=== PATIENT | female | born 1960 | race Caucasian/White ===

== ENCOUNTER → 2023-09-12 09:31 | Outpatient (REF) | payer BC, SELFPAY ==
[2023-09-12 16:32] LABS: Lyme Antibody Screen, EIA Negative (Negative)
== END ==
LOC: REG 09:31
PROVIDERS: ATTENDING PHYSICIAN Nurse Practitioner Adult Health
DX: A69.20 Lyme disease, unspecified (principal); W57.XXXA Bitten or stung by nonvenomous insect and other nonvenomous arthropods, initial encounter
CPT/HCPCS: 36415; 86618

== ENCOUNTER → 2024-01-20 14:08 | Outpatient (REF) | payer BC, SELFPAY | LOC: WDC 14:08 | PROVIDERS: ATTENDING PHYSICIAN Obstetrics & Gynecology Gynecology; FAMILY PHYSICIAN Family Medicine | DX: Z01.419 Encounter for gynecological examination (general) (routine) without abnormal findings (principal); Z12.31 Encounter for screening mammogram for malignant neoplasm of breast | CPT/HCPCS: 77063; 77067 ==

== ENCOUNTER → 2024-03-27 08:22 | Outpatient (REF) | payer MEDICARE, SELFPAY ==
[2024-03-27 09:12] LABS: % Basophils 1.2 % (0-2); % Eosinophils 3.4 % (0-6); % Immature Granulocytes 0.2 % (0-0.5); % Lymphocytes 36.1 % (20.5-51.1); % Monocytes 6.1 % (1.7-9.3); Absolute Basophils 0.1 10^3/uL (0-0.2); Absolute Eosinophils 0.1 10^3/uL (0-0.7); Absolute Lymphocytes 1.5 10^3/uL (1.2-3.4); Absolute Monocytes 0.3 10^3/uL (0.1-0.6); Absolute Neutrophils 2.2 10^3/uL (1.4-6.5); Hematocrit 41.4 % (37.0-47.0); Hemoglobin 13.5 g/dL (12.0-16.0); Mean Corp Hgb Conc. 32.6 g/dL (33.0-37.0); Mean Corpuscular Hgb 30.7 pg (27.0-31.0); Mean Corpuscular Volume 94.1 fL (81.0-99.0); Mean Platelet Volume 9.4 fL (7.4-10.4); Nucleated Red Blood Cells % 0 %; Platelet Count 210 10^3/uL (130-400); Red Cell Dist. Width 13.3 % (11.5-14.5); White Blood Cell Count 4.1 10^3/uL (4.8-10.8)
[2024-03-27 09:31] LABS: ALT (SGPT) 22 U/L (0-35); AST (SGOT) 23 U/L (14-36); Alkaline Phosphatase 57 U/L (38-126); Blood Urea Nitrogen 23 mg/dl (7-17); Calcium 9.3 mg/dl (8.4-10.2); Carbon Dioxide 29 mmol/L (22-30); Chloride 106 mmol/L (98-107); Glucose 92 mg/dl (70-99); HDL Cholesterol 102 mg/dl; LDL Cholesterol, Calculated 78 mg/dl; Potassium 4.2 mmol/L (3.5-5.1); Sodium 143 mmol/L (135-145); Total Bilirubin 0.8 mg/dl (0.2-1.3); Total Cholesterol 198 mg/dl (50-199); Total Protein 6.3 g/dl (6.3-8.2); Triglyceride 92 mg/dl (10-149); Very Low Density Lipoprotein 18 mg/dl (0-30); eGFR > 60.00
[2024-03-27 10:07] LABS: TSH Reflex To Free T4 1.19 uIU/ml (0.47-4.68)
== END ==
LOC: REG 08:22
PROVIDERS: ATTENDING PHYSICIAN Family Medicine
DX: Z00.00 Encounter for general adult medical examination without abnormal findings (principal); Z79.899 Other long term (current) drug therapy
CPT/HCPCS: 36415; 80053; 80061; 84443; 85025

== ENCOUNTER 2024-03-30 12:41 | Emergency (ER) | payer MEDICARE, SELFPAY ==
[2024-03-30 12:47] VITALS: BP 138/75
--- NOTE | 2024-03-30 15:20 | ED.GENMED ---
History of Present Illness
General
Chief Complaint: Musculo-Skeletal Complaint
Time Seen by Provider: 03/30/24 14:31
History of Present Illness
History of Present Illness:
64-year-old female without significant past medical history presenting to the emergency department for left wrist pain. Patient reports she was putting up [place] decorations and slipped, bracing her fall with her left hand outstretched. She
reports pain at the wrist and hand as well as her forearm. Denies head injury or loss of consciousness. She did not take any pain medications prior to arrival. Denies any additional acute injuries or complaints. Denies numbness or tingling to
her extremity. Denies additional acute medical complaints
Phy Exam
Physical Exam
Physical Exam:
General: Well-appearing, no clinical signs of dehydration, nontoxic and in no acute distress
HEENT: protecting airway
Neck: appears supple
CV: Normal heart rate
Resp: No accessory muscle use, no increased work of breathing,
Abd: no distension
Extremities: No deformities, no swelling, mild tenderness to palpation to the wrist joint and snuffbox. Range of motion intact. Distal sensation and pulses intact. No tenderness of the forearm or elbow. No erythema or warmth
Neuro: alert, no focal neurologic deficit
: deferred
Rectal: deferred
Psych: Normal affect
Skin: Intact
Course
Orders/Labs/Results
Orders:
Orders
03/30/24 13:19
Elbow, 3 view, Left [CR Elbow - Left Min 3 Views ] Urgent
Comment:
Reason For Exam: fall, pain
Forearm, Left 2 View [CR Forearm - Left 2 View] Urgent
Comment:
Reason For Exam: fall, pain
Wrist, Left 3 Views CR [CR Wrist - Left Min 3 Views] Urgent
Comment:
Reason For Exam: pain, fall
03/30/24 15:03
Ibuprofen [Motrin] 600 mg PO NOW STA
Vital Signs
Initial and Last Documented VS:
Initial Vital Signs
Resp
16
03/30/24 12:45
Last Documented Vital Signs
Temp Pulse Resp BP Pulse Ox
97.4 F 69 16 138/75 97
03/30/24 12:47 03/30/24 12:47 03/30/24 12:47 03/30/24 12:47 03/30/24 12:47
MDM/Problems Addressed
MDM/Problems Addressed:
64-year-old female presenting for left hand and wrist pain after a fall. Vital signs are normal.
On exam, patient is well-appearing, no acute distress or discomfort. Relatively benign examination of the left upper extremity without swelling or deformity, no neurovascular compromise, no infectious findings. Ultimately suspect wrist sprain.
X-rays obtained of the wrist, forearm, elbow, no fracture or malalignment. Will place in a splint given snuffbox tenderness. Patient advised to get a repeat x-ray 1 to 2 weeks if pain is worsening or persisting. Otherwise advised supportive
therapy including Tylenol and Motrin. Return precautions discussed and patient verbalized understanding.
*Critical Care Note
Total Time (30-74mins, 75-104mins- exclusive of procedures): Not Applicable
ED Attending Note
-
Portions of this chart may have been created with voice recognition software.� Occasional wrong word or��sound alike� substitutions may have occurred due to the inherent limitations of voice recognition software.
Discharge Plan
Departure
Prescriptions:
No Action
No Current Medications
0
Referrals:
Ines Cracamo MD [Family Provider] -
Interventions
Interventions:
*Risk Screen - Suicide Last Done: 03/30/24 12:46
*General Assessment Last Done: 03/30/24 13:20
*Neglect/Abuse Screening Last Done: 03/30/24 12:46
ED- Fall Risk Assessment Last Done: 03/30/24 13:20
ED-Musculoskeletal Assessment Last Done: 03/30/24 13:20
Discharge Date and Time
Print Language: FIJIAN
[2024-03-30] MEDS: MOTRIN 600 MG PO (15:42)
== END 2024-03-30 15:44 | disposition home or self-care (01) ==
LOC: EMR 12:41
PROVIDERS: EMERGENCY PHYSICIAN Student in an Organized Health Care Education/Training Program; FAMILY PHYSICIAN Family Medicine
DX: S69.92XA Unspecified injury of left wrist, hand and finger(s), initial encounter (principal); W01.0XXA Fall on same level from slipping, tripping and stumbling without subsequent striking against object, initial encounter
CPT/HCPCS: 29125; 99283; 73080; 73090; 73110

== ENCOUNTER → 2025-01-22 13:26 | Outpatient (REF) | payer MEDICARE, SELFPAY | LOC: WDC 13:26 | PROVIDERS: ATTENDING PHYSICIAN Obstetrics & Gynecology Gynecology; FAMILY PHYSICIAN Family Medicine | DX: Z12.31 Encounter for screening mammogram for malignant neoplasm of breast (principal); Z12.39 Encounter for other screening for malignant neoplasm of breast | CPT/HCPCS: 77063; 77067 ==